=== PATIENT | female | born 1995 | race Caucasian/White ===

== ENCOUNTER 2018-08-19 17:26 | Emergency (ER) | payer OTHER ==
[~2018-08-19] VITALS: Ht 165.1 cm; Wt 66.7 kg
[2018-08-19 17:31] VITALS: BP 94/53
--- NOTE | 2018-08-19 18:17 | RAD ---
Three-view right shoulder and two-view right clavicle dated 08/19/2018. No comparison available. Clinical data indication: Pain after injury. FINDINGS: 3 views right shoulder show normal bony alignment. No displaced fracture. No acute osseous or articular abnormality. 2 views of the right clavicle show normal bony alignment. No displaced fracture. No acute osseous or articular abnormality. IMPRESSION:. No acute findings. Electronically signed by: Arash Damon MD (08/19/2018 6:14 PM) [facility]
--- NOTE | 2018-08-19 18:17 | RAD ---
Three-view right shoulder and two-view right clavicle dated 08/19/2018. No comparison available. Clinical data indication: Pain after injury. FINDINGS: 3 views right shoulder show normal bony alignment. No displaced fracture. No acute osseous or articular abnormality. 2 views of the right clavicle show normal bony alignment. No displaced fracture. No acute osseous or articular abnormality. IMPRESSION:. No acute findings. Electronically signed by: Arash Damon MD (08/19/2018 6:14 PM) [facility]
[2018-08-19] MEDS ORDERED: ACET-704 PO (18:26)
--- NOTE | 2018-08-19 18:26 | PHYS DOC ---
Past Medical History Past Medical History: No Pertinent History Past Surgical History: Appendectomy, Other Additional Past Surgical Histo: R LUNG BX,L WRIST Drug Use: None Adult General Chief Complaint Chief Complaint: [facility] Patient is a 22-year-old female who presents with complaint of right-sided shoulder and clavicle pain after falling down several stairs at home. Patient reports that she is 17 weeks . She does indicate that she has a small amount of cramping in her right flank region when she states she believes is just muscle pain from the fall. She states that she had bumped her head but denies loss of consciousness or significant headache. She rates the pain in her shoulder as moderate. She denies any back or neck pain. She also denies any vaginal bleeding or pelvic pain. Review of Systems Review of Systems Constitutional: Denies fever or chills [] Respiratory: Denies cough or shortness of breath [] Cardiovascular: No additional information not addressed in HPI [] GI: Denies abdominal pain, nausea, vomiting or diarrhea [] : Denies vaginal bleeding or hematuria [] Musculoskeletal: Complains of right-sided flank pain/cramping[] Integument: Denies rash or skin lesions [] Neurologic: Denies headache, focal weakness or sensory changes [] All other systems were reviewed and found to be within normal limits, except as documented in this note. Allergies Allergies Allergies Coded Allergies Type Severity Reaction Last Updated Verified No Known Drug Allergies 12/04/14 No Physical Exam Physical Exam Constitutional: Well developed, well nourished, no acute distress, non-toxic appearance. [] HENT: Normocephalic, atraumatic, bilateral external ears normal, oropharynx moist, no oral exudates, nose normal. [] Eyes: PERRLA, EOMI, conjunctiva normal, no discharge. [] Neck: Normal range of motion, no tenderness, supple, no stridor. [] Cardiovascular:Heart rate regular rhythm [] Lungs & Thorax: Bilateral breath sounds clear to auscultation [] Abdomen: Bowel sounds normal, soft, no tenderness. [] Skin: Warm, dry, no erythema, no rash. [] Back: No tenderness, no CVA tenderness. [] Extremities: There is tenderness to palpation over the distal half of the clavicle and right AC joint. No obvious deformity is noted. There is decreased range of motion to the right shoulder due to reported pain. [] Neurologic: Alert and oriented X 3, normal motor function, normal sensory function, no focal deficits noted. [] Current Patient Data Vital Signs Vital Signs Date Time Temp Pulse Resp B/P (MAP) Pulse Ox O2 Delivery O2 Flow Rate FiO2 08/19/18 17:31 98.2 76 18 94/53 (67) 100 Room Air 98.2 EKG EKG [] Radiology/Procedures Radiology/Procedures X-ray of the right shoulder and clavicle demonstrates no acute bony abnormalities.[] Impressions: heart tones demonstrates rate in the 150s with good variability. Course & Med Decision Making Course & Med Decision Making Pertinent Labs and Imaging studies reviewed. (See chart for details) [] Dragon Disclaimer Dragon Disclaimer This electronic medical record was generated, in whole or in part, using a voice recognition dictation system. Departure Departure Impression: Primary Impression: Right shoulder strain Additional Impression: Contusion of right clavicle Disposition: HOME, SELF-CARE Condition: STABLE Referrals: ESTEFANIA ALEX MSN, RN, WELFARE INVESTIGATOR (PCP) Patient Instructions: Contusion, Shoulder Sprain Scripts Acetaminophen With Codeine (TYLENOL WITH CODEINE #3 TABLET) 1 Each Tablet 1 TAB PO PRN Q6HRS PRN for PAIN, #12 TAB Prov: DARNELL RODRIGUEZ Jr. DO 08/19/18 Problem Qualifiers Primary Impression: Right shoulder strain Encounter type: initial encounter Qualified Codes: S46.911A - Strain of unspecified muscle, fascia and tendon at shoulder and upper arm level, right arm , initial encounter Additional Impression: Contusion of right clavicle Encounter type: initial encounter Qualified Codes: S40.011A - Contusion of right shoulder, initial encounter DARNELL RODRIGUEZ Jr. DO Aug 19, 2018 18:26
== END 2018-08-19 18:45 | disposition home or self-care (01) ==
LOC: ER 17:26
DX: O9A.212 Injury, poisoning and certain other consequences of external causes complicating pregnancy, second trimester (principal); S46.811A Strain of other muscles, fascia and tendons at shoulder and upper arm level, right arm, initial encounter; S40.011A Contusion of right shoulder, initial encounter; Z90.89 Acquired absence of other organs; W10.8XXA Fall (on) (from) other stairs and steps, initial encounter; Y93.89 Activity, other specified; Y92.098 Other place in other non-institutional residence as the place of occurrence of the external cause; Y99.8 Other external cause status; Z3A.17 17 weeks gestation of pregnancy
CPT/HCPCS: 73000; 73030; 99284